=== PATIENT | male | born 2000 | race Caucasian/White ===

== ENCOUNTER 2024-08-04 17:24 | Emergency (ER) | payer BC, OTHER ==
--- NOTE | 2024-08-04 20:50 | ER ---
Nurse's Notes [facility] Name: Timo Gilliland Age: 24 yrs Sex: Male : 2000 Arrival Date: 08/04/2024 Time: 17:24 Bed IW10 Private MD: Diagnosis: Pain in left wrist Presentation: 08/04 18:49 Chief complaint: Patient states: L wrist pain since Monday, has progressively gotten ss worse, denies injury. Coronavirus screen: Vaccine status: Patient reports being unvaccinated. Ebola Screen: No symptoms or risks identified at this time. Initial Sepsis Screen: Does the patient meet any 2 criteria? No. Patient's initial sepsis screen is negative. Does the patient have a suspected source of infection? No. Patient's initial sepsis screen is negative. Risk Assessment: Do you want to hurt yourself or someone else? Patient reports no desire to harm self or others. Onset of symptoms was August 04, 2024. 18:49 Method Of Arrival: Ambulatory ss 18:49 Acuity: [place] 4 ss Historical: - Allergies: 18:51 No Known Allergies; ss - PMHx: 18:51 Hypertensive disorder; diabetes insipidous; CKD; ss - Immunization history:: Adult Immunizations unknown. - Infectious Disease History:: Denies. - Social history:: Smoking status: Patient denies any tobacco usage or history of. Assessment: 20:58 Reassessment: Pt left prior to being brought back to the exam room. jb4 Vital Signs: 18:49 BP 159 / 107; Pulse 91; Resp 18; Temp 97.8; Pulse Ox 99% ; Weight 127.01 kg; Height 5 ss ft. 8 in. ; Pain 9/10; 18:49 Body Mass Index 42.57 (127.01 kg, 172.72 cm) ss 18:49 Pain Scale: Adult ss ED Course: 17:26 Patient arrived in ED. im 17:28 Ortiz Haro PA is PHCP. cp 17:29 Garett Silvestre MD is Attending Physician. cp 18:51 Triage completed. ss 18:52 Arm band placed on Patient placed in waiting room, Patient notified of wait time. ss Administered Medications: No medications were administered Outcome: 20:50 Discharge ordered by . cp 20:58 Eloped from waiting room, after seeing physician jb4 20:59 Patient left the ED. jb4 Signatures: Mary Metcalf RN RN ss Ortiz Haro PA PA cp Bryson, James, RN RN jb4 Lenka Brannon
--- NOTE | 2024-08-04 20:50 | EDPHYS ---
Physician Documentation [facility] Name: Timo Gilliland Age: 24 yrs Sex: Male : 2000 Arrival Date: 08/04/2024 Time: 17:24 Bed IW10 Private MD: ED Physician Garett Silvestre HPI: 08/04 19:00 This 24 yrs old Male presents to ER via Ambulatory with complaints of Arm Pain - left. cp 19:00 The patient or guardian complains of pain, that is acute. The complaints affect the cp left wrist. Context: resulted from unknown cause. 19:00 Onset: The symptoms/episode began/occurred this past Monday. Treatment prior to arrival cp includes: no previous treatment. 19:00 Associated signs and symptoms: Pertinent negatives: decreased range of motion, cp deformity, known injury. 19:00 Mother reports concern for gout. cp Historical: - Allergies: 18:51 No Known Allergies; ss - PMHx: 18:51 Hypertensive disorder; diabetes insipidous; CKD; ss - Immunization history:: Adult Immunizations unknown. - Infectious Disease History:: Denies. - Social history:: Smoking status: Patient denies any tobacco usage or history of. ROS: 19:03 Constitutional: Negative for body aches, chills, fever, poor PO intake, cp 19:03 Eyes: Negative for injury, pain, redness, and discharge, cp 19:03 Neck: Negative for pain with movement, pain at rest, stiffness, 19:03 Back: Negative for pain at rest, pain with movement, 19:03 MS/extremity: Positive for pain, tenderness, of the left wrist, Negative for injury or acute deformity, decreased range of motion, paresthesias, 19:03 Neuro: Negative for headache, numbness, weakness, 19:03 All other systems are negative, Exam: 19:05 Constitutional: The patient appears in no acute distress, alert, awake, well developed, cp well nourished, obese, 19:05 Head/Face: Normocephalic, atraumatic. cp 19:05 Chest/axilla: Inspection: normal, 19:05 Cardiovascular: Rate: normal, Pulses: Pulses are 2+ in left radial artery. 19:05 Respiratory: the patient does not display signs of respiratory distress, Respirations: normal, no use of accessory muscles, no retractions, 19:05 Musculoskeletal/extremity: Extremities: noted in the left wrist: tenderness, mild swelling, There is no evidence of decreased ROM, deformity, ROM: limited passive range of motion due to pain, in the left wrist, the left hand Sensation intact. Vital Signs: 18:49 BP 159 / 107; Pulse 91; Resp 18; Temp 97.8; Pulse Ox 99% ; Weight 127.01 kg; Height 5 ss ft. 8 in. ; Pain 9/10; 18:49 Body Mass Index 42.57 (127.01 kg, 172.72 cm) ss 18:49 Pain Scale: Adult ss MDM: 18:49 Medical Screening Exam initiated cp 19:00 Differential diagnosis: closed fracture, tendonitis, sprain, gout. cp 20:50 Data reviewed: vital signs, nurses notes, and as a result, I will discharge patient. cp 20:50 ED course: patient left ED prior to Xrays and blood draw. cp Administered Medications: No medications were administered Disposition: 08/05 09:43 Co-signature as Attending Physician, Garett Silvestre MD I reviewed the patient's care rn provided by the Advanced Practice Provider and agree with the diagnosis and treatment plan. Disposition Summary: 08/04/24 20:50 Discharge Ordered Notes: Location: Home cp Problem: new cp Symptoms: are unchanged cp Condition: Stable cp Diagnosis - Pain in left wrist cp Followup: cp - With: Private Physician - When: 2 - 3 days - Reason: Recheck today's complaints Discharge Instructions: - Discharge Summary Sheet cp - Wrist Pain, Adult cp Forms: - Medication Reconciliation Form cp - Antibiotic Education cp - Prescription Opioid Use cp - Patient Portal Instructions cp - Leadership Thank You Letter cp Signatures: Dispatcher [employer] Garett Morrow MD MD rn Blanchard, Shelby, RN RN ss Page, Corey, PA PA cp Corrections: (The following items were deleted from the chart) 08/04 19:29 19:29 URIC ACID+C.LAB.BRZ ordered. EDMS EDMS 19:29 19:29 CBC+H.LAB.BRZ ordered. EDMS EDMS 19:29 19:29 BASIC METABOLIC PANEL+C.LAB.BRZ ordered. EDMS EDMS 19:29 19:29 Wrist Left 3 View+RAD.RAD.BRZ ordered. EDMS EDMS
[2024-08-04 21:03] VITALS: BP 159/107; TEMP 97.8; O2SAT 99
== END 2024-08-04 20:59 | disposition home or self-care (01) ==
LOC: ER 17:24
DX: M25.532 Pain in left wrist (principal)
CPT/HCPCS: 99281